=== PATIENT | female | born 2000 | race Caucasian/White ===

== ENCOUNTER 2021-03-20 19:24 | Emergency (ER) | payer MEDICAID, OTHER ==
[~2021-03-20] VITALS: Ht 162.6 cm; Wt 57.7 kg
[2021-03-20 21:11] VITALS: BP 138/87
[2021-03-20] MEDS ORDERED: IPRATROPIUM/ALBUTEROL 20/100mcg/INH INHALER. INH ONE (22:00)
[2021-03-20] MEDS ORDERED: DEXAMETHASONE 4 MG TABLET PO ONE (22:00)
--- NOTE | 2021-03-20 22:26 | PHYS DOC ---
Past Medical History Past Medical History: Asthma (THOM ROY APRN) Past Surgical History: No Surgical History (THOM ROY APRN) Smoking Status: Current Every Day Smoker Alcohol Use: None Drug Use: None (THOM ROY APRN) General Adult EDM: Chief Complaint: FLU SYMPTOM HPI: HPI: Patient is a 21-year-old female that presents today with increased asthma symptoms since being diagnosed with COVID-19. Patient states that 1 week ago she was diagnosed with COVID-19 and since that time she has been using her rescue inhaler at least 20+ times a day and not getting any relief from it. She states that when she gets like this she says she usually needs a steroid to help with inflammation. She just found out last week when she got swabbed for COVID-19 that she was . She has her first OB appointment on March 28. She denies any vaginal bleeding or vaginal discharge at this time. Patient is just requesting some steroids to help with her increased use of her inhaler. At this time the patient does not have a primary care physician. And does not have COVID vaccines. (THOM ROY WORKERS' COMPENSATION MEDIATOR) Review of Systems: Review of Systems: Constitutional: Denies fever or chills. [] Eyes: Denies change in visual acuity. [] HENT: Denies nasal congestion or sore throat. [] Respiratory: Increased shortness of breath Cardiovascular: Denies chest pain or edema. [] GI: Denies abdominal pain, nausea, vomiting, bloody stools or diarrhea. [] : Denies dysuria. [] Musculoskeletal: Denies back pain or joint pain. [] Integument: Denies rash. [] Neurologic: Denies headache, focal weakness or sensory changes. [] Endocrine: Denies polyuria or polydipsia. [] Lymphatic: Denies swollen glands. [] Psychiatric: Denies depression or anxiety. [] (THOM ROY APRN) Heart Score: C/O Chest Pain: N/A Risk Factors: Risk Factors: DM, Current or recent (<one month) smoker, HTN, HLP, family his tory of CAD, obesity. Risk Scores: Score 0 - 3: 2.5% MACE over next 6 weeks - Discharge Home Score 4 - 6: 20.3% MACE over next 6 weeks - Admit for Clinical Observation Score 7 - 10: 72.7% MACE over next 6 weeks - Early Invasive Strategies (THOM ROY APRN) Current Medications: Current Medications Medications (Trade) Dose Ordered Sig/Angel Start Time Stop Time Status Last Admin Dose Admin Albuterol/ Ipratropium (Combivent Respimat 20-100 Mcg) 1 puff 1X ONCE 03/20/21 22:00 03/20/21 22:01 DC Dexamethasone (Decadron) 10 mg 1X ONCE 03/20/21 22:00 03/20/21 22:01 DC 03/20/21 21:34 10 MG (THOM ROY APRN) Allergies: Allergies: Allergies Coded Allergies Type Severity Reaction Last Updated Verified No Known Drug Allergies 03/20/21 No (THOM ROY APRN) Physical Exam: PE: Constitutional: Well developed, well nourished, no acute distress, non-toxic appearance. [] HENT: Normocephalic, atraumatic, bilateral external ears normal, oropharynx moist, no oral exudates, nose normal. [] Eyes: PERRLA, EOMI, conjunctiva normal, no discharge. [] Neck: Normal range of motion, no tenderness, supple, no stridor. [] Cardiovascular:Heart rate regular rhythm, no murmur [] Lungs & Thorax: Bilateral breath sounds wheezes throughout Abdomen: Bowel sounds normal, soft, no tenderness, no masses, no pulsatile masses. [] Skin: Warm, dry, no erythema, no rash. [] Back: No tenderness, no CVA tenderness. [] Extremities: No tenderness, no cyanosis, no clubbing, ROM intact, no edema. [] Neurologic: Alert and oriented X 3, normal motor function, normal sensory fu nction, no focal deficits noted. [] Psychologic: Affect normal, judgement normal, mood normal. [] (THOM ROY APRN) Current Patient Data: Vital Signs: Vital Signs Date Time Temp Pulse Resp B/P (MAP) Pulse Ox O2 Delivery O2 Flow Rate FiO2 03/20/21 20:40 98.0 82 16 139/90 (106) 100 Room Air 98.0 (THOM ROY APRN) EKG: EKG: [] (THOM ROY APRN) Radiology/Procedures: Radiology/Procedures: [] (THOM ROY APRN) Course & Med Decision Making: Course & Med Decision Making Pertinent Labs and Imaging studies reviewed. (See chart for details) After talking with patient we will give patient a Combivent treatment with a spacer per respiratory therapy we will also give her a one-time dose of Decadron. Since patient does not have a primary care physician will encourage h er to call for primary care physician starting tomorrow to manage her asthma. Patient is also encouraged to continue to quarantine until 10 days after her first symptoms. Patient is agreeable to the plan of care. (THOM ROY APRN) Dragon Disclaimer: Dragon Disclaimer: This electronic medical record was generated, in whole or in part, using a voice recognition dictation system. (THOM ROY APRN) Departure Departure Impression: Primary Impression: Exacerbation of asthma Qualified Codes: J45.901 - Unspecified asthma with (acute) exacerbation Additional Impression: COVID-19 Disposition: HOME / SELF CARE / HOMELESS Condition: STABLE Referrals: NO PCP (PCP) Patient Instructions: Asthma, Adult Additional Instructions: Combivent inhaler use 2 puffs every 6 hours for the next 3 days, use with spacer. Then as needed up to 4 times daily Rescue inhaler use with spacer every 4 hours 2 puffs do not exceed 24 puffs in 24 hours. Tylenol as needed for fever and body aches Increase by mouth fluid Follow-up with one of the listed clinics or providers for management of your asthma after your quarantine is over. You have been tested for or diagnosed with COVID-19. It is an infection caused by a new type of coronavirus. COVID-19 will cause cold-like or mild flu symptoms in most. It can cause more severe symptoms like problems breathing in some. There is no treatment for COVID-19. The body will clear the infection over time. Self-care will help to ease discomfort. Steps to Take: Self-Care Rest as needed. Healthy habits may help you feel better. Steps include: Choose healthy foods including fruits and vegetables. Drink water throughout the day. Get plenty of sleep each night. If you smoke, try to quit. It may ease breathing. Avoid alcohol. Keep Others Healthy The virus can spread to others. Droplets are released every time you sneeze or cough. The droplets can get into the mouth, nose, or eyes of people near you and lead to infection. To lower the chances of spreading COVID-19 to others: Stay at home until your doctor has said it is safe to leave. If you tested positive this will mean staying isolated until both of the following are true: At least 10 days have passed since the start of illness. You are free of fever for at least 72 hours without the use of medicine. During this time: - Avoid public areas, events, or transportation. Do not return to work or school until your doctor has said it is safe to do so. - Call ahead if you need to go to a medical center. Let them know you may have COVID-19. It will help them guide you where to go. They may also ask you to wear a facemask when you come to the office. - If you call for emergency medical services, let them know you may have COVID- 19. While at home: - Try to avoid close contact with others. Stay about 6 feet away. - If possible, spend most of your time in a separate room from others. - Use a face mask if you will be in close contact with others such as sharing a room or vehicle. - Have someone wipe down common surfaces in the home. Use household athletic equipment manager every day on areas like doorknobs, counters, or sinks. - Cough or sneeze into a tissue. Throw the tissue away right after use. If a tissue is not available, cough or sneeze into your elbow. - Wash your hands often. Wash them after sneezing or coughing. Use soap and water and wash for at least 20 seconds. Alcohol based hand sweeper cleaner industrial can be used if soap and water is not available. - Do not prepare food for others. Avoid sharing personal items like forks, sp oons, or toothbrushes. - Avoid close contact with pets while you are sick. There is no evidence of the virus passing to pets. This is a safety step until more is known about this virus. Isolation can be frustrating. Social interaction can help. Keep in touch with friends and family through phone and tech options. You can still interact with others in your home, just keep a safe distance of about 6 feet. Follow-up: Your doctors office will check in with you to see if there are any changes in your health. You may be asked to keep track of symptoms to share with them. They will also let you know when you are clear to be in public again. Problems to Look Out For: Contact your doctor if your recovery is not going as you expect. Get emergency care if you have problems such as: - Trouble breathing - Nonstop chest pain or pressure - Changes in awareness, confusion, or problems waking - Lips or face have bluish color - Worsening of symptoms If you think you have an emergency, call for emergency medical services right away. As taken from [facility] Attending Signature Attending Signature I have reviewed the PA/GENERAL LITHOGRAPHIC WORKER's note and plan of care. I was available for consultation as needed during the patient's visit in the emergency department. I agree with the clinical impression, plan, and disposition. (RYAN CHARLES DO) THOM ROY APRN Mar 20, 2021 22:25 RYAN CHARLES DO Mar 21, 2021 02:06
== END 2021-03-20 22:40 | disposition home or self-care (01) ==
LOC: ER 19:24
DX: U07.1 COVID-19 (principal); J45.901 Unspecified asthma with (acute) exacerbation; F17.200 Nicotine dependence, unspecified, uncomplicated
CPT/HCPCS: 94640; 94760; 99283; 99284; 94664; 99285-25